=== PATIENT | male | born 1970 | race Caucasian/White ===

== ENCOUNTER 2018-08-28 22:11 | Emergency (ER) | payer SELFPAY ==
[~2018-08-28] VITALS: Ht 180.3 cm; Wt 63.5 kg
[2018-08-28] MEDS ORDERED: ETOMIDATE 20 MG/10 ML VIAL. IV ONE (23:30)
[2018-08-28] MEDS ORDERED: IV NORMAL SALINE 1000ML BAG 1,000 ML IV ONE (23:30)
[2018-08-28] MEDS ORDERED: fentaNYL PF VIAL 100 MCG/2 ML VIAL IV ONE (23:30)
--- NOTE | 2018-08-28 23:43 | RAD ---
3 views left shoulder dated 08/28/2018. Comparison none Clinical data indication: Pain after injury. FINDINGS: 3 views left shoulder show anterior dislocation of the humeral head relative to the glenoid. No displaced fracture. Mild hypertrophic change of the AC joint. IMPRESSION: Anterior dislocation of the glenohumeral joint. Electronically signed by: Ariel Burentt MD (08/28/2018 11:39 PM) [facility]
[2018-08-28 23:50] VITALS: BP 145/88
[2018-08-29 00:30] VITALS: BP 146/94
[2018-08-29] MEDS ORDERED: HYDR-3164 PO (00:35)
--- NOTE | 2018-08-29 00:35 | PHYS DOC ---
Past Medical History Past Medical History: No Pertinent History Past Surgical History: No Surgical History Additional Information: Nonsmoker Alcohol Use: None Drug Use: None Adult General Chief Complaint Chief Complaint: SHOULDER INJURY HPI HPI 48 y/o male presents with left shoulder pain x 2 days. Reports was "wrestling around" and then felt pain to left shoulder and had difficulty moving it. Patient reports he was seen by his chiropractor who was able to reduce the shoulder. Reports tonight he took a nap and "must have moved funny" because now it is very uncomfortable and is unable to move it again. Denies other injury. Reports some numbness to 4th and 5th digit. Review of Systems Review of Systems Constitutional: Denies fever or chills [] Musculoskeletal: Pain to left shoulder Integument: Denies rash or skin lesions [] Neurologic: Denies headache, focal weakness; reports some numbness to left 4th and 5th finger Complete systems were reviewed and found to be within normal limits, except as documented in this note. Current Medications Current Medications Current Medications Medications (Trade) Dose Ordered Sig/Nadir Start Time Stop Time Status Last Admin Dose Admin Etomidate (Amidate) 10 mg 1X ONCE 08/28/18 23:30 08/28/18 23:31 DC 08/28/18 23:46 10 MG Fentanyl Citrate (Fentanyl 2ml Vial) 100 mcg 1X ONCE 08/28/18 23:30 08/28/18 23:31 DC 08/28/18 23:46 100 MCG Sodium Chloride 1,000 ml @ 1,000 mls/hr 1X ONCE 08/28/18 23:30 08/29/18 00:29 DC 08/28/18 23:47 1,000 MLS/HR Allergies Allergies Allergies Coded Allergies Type Severity Reaction Last Updated Verified No Known Drug Allergies 08/28/18 No Physical Exam Physical Exam Constitutional: Well developed, well nourished, no acute distress, non-toxic appearance. [] HENT: Normocephalic, atraumatic, oropharynx moist, pharynx clear Eyes: Conjunctiva normal, no discharge. [] Neck: Normal range of motion, no tenderness, supple Cardiovascular: Heart rate regular rhythm, no murmur [] Lungs & Thorax: Bilateral breath sounds clear to auscultation [] Skin: Warm, dry, no erythema, no rash. [] Extremities: Left shoulder with deformity at shoulder concerning for dislocation , pain with ROM. Radial pulse +2, reports some decreased sensation to 4th and 5th fingers, CR < 2 sec Neurologic: Alert and oriented X 3,no focal deficits noted. [] Psychologic: Affect normal, judgement normal, mood normal. [] Current Patient Data Vital Signs Vital Signs Date Time Temp Pulse Resp B/P (MAP) Pulse Ox O2 Delivery O2 Flow Rate FiO2 08/29/18 00:30 85 146/94 (111) 100 Room Air 08/29/18 00:18 98.3 18 08/29/18 00:14 2.0 EKG EKG [] Radiology/Procedures Radiology/Procedures PROCEDURE: SHOULDER 2+V LEFT 3 views left shoulder dated 08/28/2018. Comparison none Clinical data indication: Pain after injury. FINDINGS: 3 views left shoulder show anterior dislocation of the humeral head relative to the glenoid. No displaced fracture. Mild hypertrophic change of the AC joint. IMPRESSION: Anterior dislocation of the glenohumeral joint. Electronically signed by: Ariel Burnett MD (08/28/2018 11:39 PM) [facility] PROCEDURE: SHOULDER LEFT 1V Single view left shoulder dated 08/29/2018. Comparison made to 08/28/2018. CLINICAL INDICATION: Status post reduction of anterior dislocation. FINDINGS: Single upright portable exam performed. Interval reduction of anterior dislocation. Glenohumeral alignment is anatomic. No apparent fracture. Mild hypertrophic change of the AC joint. IMPRESSION: Interval reduction of anterior shoulder dislocation. Electronically signed by: Ariel Burnett MD (08/29/2018 12:38 AM) [facility] Course & Med Decision Making Course & Med Decision Making Pertinent Imaging studies reviewed. (See chart for details) Patient presents with HPI and physical exam consistent for left shoulder dislocation. XR confirmed dislocation. Reduction performed under moderate sedation. Immobilizer placed. Repeat XR confirmed reduction. Patient initially reported some numbness to 4th and 5th fingers which resolved upon reduction of shoulder. Patient stable for discharge home with outpatient follow-up with PCP/ Orthopedics. Orthopedic referral provided. Discussed findings and plan with patient, who acknowledges understanding and agreement. Dragon Disclaimer Dragon Disclaimer This electronic medical record was generated, in whole or in part, using a voice recognition dictation system. Departure Departure Impression: Primary Impression: Shoulder dislocation Disposition: 01 HOME, SELF-CARE Condition: IMPROVED Referrals: NO PCP (PCP) TITO HALL MD Patient Instructions: Sedation or General Anesthesia, Adult, Care After, Shoulder Dislocation, [id number] Scripts Hydrocodone/Apap 5-325 (NORCO 5-325 TABLET) 1 Each Tablet 1 TAB PO PRN Q6HRS PRN for PAIN, #10 TAB 0 Refills Prov: ARIEL VERNON DO 08/29/18 MODERATE SEDATION ASSESSMENT* RISKS/ALTERNATIVES Risks/Alternatives Risks and alternatives of this type of sedation and procedure discussed with: RISK/ALTERNATIVES: Patient H & P ON CHART H & P H & P on chart and reviewed for co-morbid conditions and appropriate labs. H&P ON CHART: Yes STATUS PREG STATUS ASSESSED: N/A MEDS/ALLERGIES REVIEWED Meds/Allergies Reviewed Medications and Allergies including time and route of recently administered narcotics and sedatives. MEDS/ALLERGIES REVIEWED: Yes ASA RATING ASA RATING: I AIRWAY ASSESSMENT Airway Assessment Airway patency, oral function limitations, presence of caps, crowns, dentures, partials, and ability to extend neck assessed. AIRWAY ASSESSMENT: Yes MALLAMPATI SCORE MALLAMPATI SCORE: II PRE-SEDATION ASSESSMENT PRE-SEDATION ASSESSMENT: Yes Splinting Splinting : Location: Left shoulder Pre-Made Type: shoulder immobilizer Pre-Proc Neuro Vasc Exam: abnormal (decreased sensation to 4th/5th finger on left) Post-Proc Neuro Vasc Exam: normal, changed from pre-exam (decreased sensation now resolved s/p reduction) Additional Procedures Progress Shoulder reduction under moderate sedation: Written consent obtained. Time out completed. Hand hygiene utilized. Monitors in place. 100mcg fentanyl and 10mg of etomidate given. Left shoulder reduction performed by myself with traction and counter traction. Shoulder immobilizer placed. Problem Qualifiers Primary Impression: Shoulder dislocation Encounter type: initial encounter Laterality: left Qualified Codes: S43.005A - Unspecified dislocation of left shoulder joint, initial encounter ARIEL VERNON DO Aug 29, 2018 00:35
--- NOTE | 2018-08-29 00:42 | RAD ---
Single view left shoulder dated 08/29/2018. Comparison made to 08/28/2018. CLINICAL INDICATION: Status post reduction of anterior dislocation. FINDINGS: Single upright portable exam performed. Interval reduction of anterior dislocation. Glenohumeral alignment is anatomic. No apparent fracture. Mild hypertrophic change of the AC joint. IMPRESSION: Interval reduction of anterior shoulder dislocation. Electronically signed by: Ariel Burnett MD (08/29/2018 12:38 AM) [facility]
== END 2018-08-29 00:59 | disposition home or self-care (01) ==
LOC: ER 22:11
DX: S43.015A Anterior dislocation of left humerus, initial encounter (principal); S43.085A Other dislocation of left shoulder joint, initial encounter; X58.XXXA Exposure to other specified factors, initial encounter; Y93.72 Activity, wrestling; Y92.89 Other specified places as the place of occurrence of the external cause; Y99.8 Other external cause status
CPT/HCPCS: 23650; 73020; 73030; 99285; J3010; J7030